=== PATIENT | female | born 1985 | race Caucasian/White ===

== ENCOUNTER → 2016-10-19 | Outpatient (CLI) | payer BC ==
[2016-10-19 14:37] LABS: MEAN PLATELET VOLUME 10.8 FL (7.4-10.4); RED BLOOD COUNT 4.24 10^6/uL (4.35-5.85); RED CELL DISTRIBUTION WIDTH 13.1 % (10.0-14.5); WHITE BLOOD COUNT 5.6 10^3/uL (4.3-11.0)
[2016-10-19 15:11] LABS: THYROID STIMULATING HORMONE 0.82 UIU/ML (0.35-4.94)
--- NOTE | 2016-10-19 16:58 | Diagnostic Imaging Report ---
Transabdominal and transvaginal pelvic ultrasound. INDICATION: Abnormal uterine bleeding. FINDINGS: The uterus is 6.3 x 4.9 x 2.4 cm. The endometrial stripe is 0.3 cm in thickness. There is no focal myometrial or endometrial mass identified. The right ovary is 3.8 x 1.9 x 2.7 cm. The left ovary is 2.1 x 2.8 x 1.3 cm. Multiple follicles in each ovary are seen. The left ovary demonstrates arterial and venous waveforms with color Doppler and arterial waveforms are demonstrated over the right ovary. No adnexal mass or fluid collection is seen. IMPRESSION: Unremarkable exam. Dictated by: Dictated on workstation # [id number]
[2016-10-20 07:59] LABS: FOLLICLE STIMULATING HORMONE 7.1 mIU/mL; LUTEINIZING HORMONE 2.8 mIU/mL
== END ==
LOC: RAD 14:16
PROVIDERS: ATTEND Family Medicine
DX: N93.9 Abnormal uterine and vaginal bleeding, unspecified (principal)
CPT/HCPCS: 36415; 76830; 76856; 82670; 83001; 83002; 84439; 84443; 85027